=== PATIENT | male | born 1960 | race Caucasian/White ===

== ENCOUNTER 2019-11-27 14:54 | Outpatient (CLI) | payer OTHER, SELFPAY ==
[2019-11-27 15:09] LABS: Basophils Absolute Auto 0.07 K/mm3 (0.00-0.10); Basophils Percent Auto 0.7 % (0.0-1.0); Eosinophils Absolute Auto 0.41 K/mm3 (0.02-0.50); Eosinophils Percent Auto 4.1 % (1.0-6.0); Hematocrit 41.7 % (40.0-54.0); Hemoglobin 13.6 g/dL (14.0-18.0); Immature Granulocyte Absolute 0.03 K/mm3 (0.00-0.00); Immature Granulocyte Percent A 0.3 % (0.0-0.0); Lymphocytes Absolute Auto 2.67 K/mm3 (1.10-4.50); Lymphocytes Percent Auto 26.4 % (18.0-42.0); Mean Corpuscular HGB Conc 32.6 g/dL (32.0-36.0); Mean Corpuscular Hemoglobin 29.4 pg (27.0-31.0); Mean Corpuscular Volume 90.1 fL (78.0-102.0); Mean Platelet Volume 10.3 fl (8.7-11.0); Monocytes Absolute Auto 0.83 K/mm3 (0.10-0.90); Monocytes Percent Auto 8.2 % (2.0-11.0); Neutrophils Absolute Auto 6.1 K/mm3 (1.7-7.2); Neutrophils Percent Auto 60.3 % (50.0-70.0); Platelet Count Result 268 K/mm3 (150-420); Red Blood Count 4.63 M/mm3 (4.70-6.10); Red Cell Distribution Width 13.2 % (11.6-14.4); White Blood Count 10.1 K/mm3 (4.8-10.8)
[2019-11-27 16:15] LABS: Erythrocyte Sedimentation Rate 7 mm/hr (0-20)
[2019-12-01 12:17] LABS: Protein C Antigen 113 % (70-140)
== END 2019-11-27 14:55 | disposition home or self-care (01) ==
PROVIDERS: PCP Family Medicine Adolescent Medicine
DX: H47.011 Ischemic optic neuropathy, right eye (principal)
CPT/HCPCS: 36415; 85025; 85302; 85303; 85652

== ENCOUNTER 2020-05-07 08:26 | Outpatient (CLI) | payer OTHER, MEDICAID, SELFPAY ==
[2020-05-07 08:48] LABS: Hemoglobin A1C 7.7 % (<5.7)
[2020-05-07 09:30] LABS: Alanine Aminotransferase 52 U/L (16-63); Albumin Level 4.1 g/dL (3.4-5.0); Alkaline Phosphatase 73 U/L (46-116); Anion Gap 7 mmol/L (8-16); Aspartate Amino Transferase 23 U/L (15-37); Bilirubin,Total 0.4 mg/dL (0.00-1.00); Blood Urea Nitrogen 21 mg/dL (7-18); Calcium 9.1 mg/dL (8.5-10.1); Carbon Dioxide 28 mmol/L (21-32); Chloride 106 mmol/L (98-108); Cholesterol 168 mg/dL (0-200); Estimated Glomerular Filt Rate > 60; Glucose 111 mg/dL (70-99); HDL Direct 37 mg/dL (40-60); LDL Cholesterol Calculated 115 mg/dL (<130); Osmolality Calculated 296 mOsm/kg (285-295); Potassium 4.7 mmol/L (3.5-5.1); Prostate Specific Antigen 1.6 ng/mL (< OR = 4.0); Sodium 141 mmol/L (136-145); Total Protein 7.2 g/dL (6.4-8.2); Triglycerides 81 mg/dL (0-150)
== END 2020-05-07 08:27 | disposition home or self-care (01) ==
LOC: CHSLAB 08:29
PROVIDERS: PCP Family Medicine Adolescent Medicine; Visit Provider Family Medicine Adolescent Medicine
DX: E11.9 Type 2 diabetes mellitus without complications (principal); I10 Essential (primary) hypertension; E78.00 Pure hypercholesterolemia, unspecified; Z12.5 Encounter for screening for malignant neoplasm of prostate
CPT/HCPCS: 36415; 80053; 80061; 83036; 84153; G0103

== ENCOUNTER 2021-05-24 14:59 | Outpatient (CLI) | payer OTHER, MEDICAID, SELFPAY ==
[2021-05-24 16:38] LABS: SARS-CoV-2 RNA PCR Positive (Negative)
== END 2021-05-24 15:00 | disposition home or self-care (01) ==
LOC: CHSLAB 15:00
PROVIDERS: PCP Family Medicine Adolescent Medicine; Visit Provider Family Medicine Adolescent Medicine
DX: U07.1 COVID-19 (principal)
CPT/HCPCS: C9803; U0003; U0005

== ENCOUNTER 2021-11-22 08:05 | Outpatient (CLI) | payer OTHER, SELFPAY ==
[2021-11-22 08:34] LABS: Hemoglobin A1C 8.1 % (<5.7)
[2021-11-22 08:54] LABS: Alanine Aminotransferase 47 U/L (16-63); Albumin Level 3.7 g/dL (3.4-5.0); Alkaline Phosphatase 76 U/L (46-116); Anion Gap 5 mmol/L (8-16); Aspartate Amino Transferase 20 U/L (15-37); Bilirubin,Total 0.4 mg/dL (0.00-1.00); Blood Urea Nitrogen 9 mg/dL (7-18); Calcium 8.8 mg/dL (8.5-10.1); Carbon Dioxide 29 mmol/L (21-32); Chloride 104 mmol/L (98-108); Cholesterol 209 mg/dL (0-200); Estimated Glomerular Filt Rate > 60; Glucose 123 mg/dL (70-99); HDL Direct 37 mg/dL (40-60); LDL Cholesterol Calculated 143 mg/dL (<130); Osmolality Calculated 285 mOsm/kg (285-295); Potassium 4.6 mmol/L (3.5-5.1); Prostate Specific Antigen 2.4 ng/mL (< OR = 4.0); Sodium 138 mmol/L (136-145); Total Protein 6.9 g/dL (6.4-8.2); Triglycerides 145 mg/dL (0-150)
== END 2021-11-22 08:06 | disposition home or self-care (01) ==
LOC: CHSLAB 08:09
PROVIDERS: PCP Family Medicine Adolescent Medicine; Visit Provider Family Medicine Adolescent Medicine
DX: E78.00 Pure hypercholesterolemia, unspecified (principal); I10 Essential (primary) hypertension; E11.9 Type 2 diabetes mellitus without complications; Z12.5 Encounter for screening for malignant neoplasm of prostate
CPT/HCPCS: 36415; 80053; 80061; 83036; 84153; G0103

== ENCOUNTER 2022-05-22 09:17 | Outpatient (CLI) | payer OTHER, SELFPAY ==
[2022-05-22 09:41] LABS: Hemoglobin A1C 8.4 % (<5.7)
[2022-05-22 10:31] LABS: Cholesterol 167 mg/dL (0-200); HDL Direct 36 mg/dL (40-60); LDL Cholesterol Calculated 106 mg/dL (<130); Triglycerides 126 mg/dL (0-150)
[2022-05-28 10:51] LABS: Testosterone Total 413 ng/dL (250-1100)
== END 2022-05-22 09:18 | disposition home or self-care (01) ==
LOC: CHSLAB 09:18
PROVIDERS: PCP Family Medicine Adolescent Medicine; Visit Provider Family Medicine Adolescent Medicine
DX: R80.9 Proteinuria, unspecified (principal); N52.9 Male erectile dysfunction, unspecified; E78.00 Pure hypercholesterolemia, unspecified; E11.29 Type 2 diabetes mellitus with other diabetic kidney complication
CPT/HCPCS: 36415; 80061; 83036; 84403

== ENCOUNTER 2022-11-17 10:11 | Outpatient (CLI) | payer OTHER, SELFPAY ==
[2022-11-17 10:32] LABS: Creatinine Urine 184.27 mg/dL (40-278); MALB Creatinine Ratio 23.5 mg/g (0-30); Microalbumin Urine Random 43.4 mg/L
[2022-11-17 10:34] LABS: Hemoglobin A1C 8.4 % (<5.7)
[2022-11-17 10:59] LABS: Alanine Aminotransferase 54 U/L (16-63); Albumin Level 3.8 g/dL (3.4-5.0); Alkaline Phosphatase 87 U/L (46-116); Anion Gap 8 mmol/L (8-16); Aspartate Amino Transferase 28 U/L (15-37); Bilirubin,Total 0.4 mg/dL (0.00-1.00); Blood Urea Nitrogen 21 mg/dL (7-18); Calcium 9.3 mg/dL (8.5-10.1); Carbon Dioxide 27 mmol/L (21-32); Chloride 103 mmol/L (98-108); Cholesterol 174 mg/dL (0-200); Estimated Glomerular Filt Rate > 60; Glucose 144 mg/dL (70-99); HDL Direct 33 mg/dL (40-60); LDL Cholesterol Calculated 116 mg/dL (<130); Osmolality Calculated 292 mOsm/kg (285-295); Sodium 138 mmol/L (136-145); Total Protein 6.9 g/dL (6.4-8.2); Triglycerides 123 mg/dL (0-150)
[2022-11-17 11:07] LABS: Thyroid Stimulating Hormone Reflex 1.89 u/IU/mL (0.36-3.74)
== END 2022-11-17 10:12 | disposition home or self-care (01) ==
LOC: CHSLAB 10:12
PROVIDERS: PCP Nurse Practitioner Family; Visit Provider Nurse Practitioner Family
DX: I95.89 Other hypotension (principal); I10 Essential (primary) hypertension; E78.00 Pure hypercholesterolemia, unspecified; E11.9 Type 2 diabetes mellitus without complications
CPT/HCPCS: 36415; 80053; 80061; 82043; 83036; 84443

== ENCOUNTER 2022-11-23 10:28 | Outpatient (CLI) | payer OTHER, SELFPAY ==
--- NOTE | 2022-11-23 10:37 | EST_ITS ---
Patient Info Name: Julian Lowe Age: 61 years : 1960 Gender: Male Ht: 66 in Wt: 213 lbs BSA: 2.16 m2 Exam Date: 11/23/2022 11:02 AM Exam Location: [facility] Patient Status: Outpatient Admit Date: 11/23/2022 Staff Ordering Physician: Rose Shirley APRN Attending Provider: Rose Shirley APRN Exercise Technologist: Betsy Diaz RDCS Exercise Physician: Beka Mota DO Exam Type: CA stress test treadmill Study Info Indications I10 - Essential (primary) hypertension A treadmill exercise stress test was performed. Summary 1. 1. Negative Klever exercise stress test for ischemic ST changes by ECG criteria. 2. 2. Reduced functional capacity, achieving 7 METs of workload. 3. 3. Baseline hypertension with hypertensive response to exercise. 4. 4. Appropriate HR response to exercise. 5. 5. Appropriate HR recovery at 1 minute post exercise. 6. 6. No imaging with stress testing. 7. 7. Patient informed of the above results. Protocol: [facility] Stress ECG Details Stage: REST Duration (min): 2 min : 17 sec Speed (mph): 0.0 Grade (%): 0 HR (bpm): 71 SBP (mmHg): 140 DBP (mmHg): 76 METS: --- Stage: REST Duration (min): 6 min : 36 sec Speed (mph): 0.0 Grade (%): 0 HR (bpm): 70 SBP (mmHg): 140 DBP (mmHg): 76 METS: --- Stage: STAGE 1 Duration (min): 1 min : 0 sec Speed (mph): 1.7 Grade (%): 10 HR (bpm): 96 SBP (mmHg): 140 DBP (mmHg): 76 METS: --- Stage: STAGE 1 Duration (min): 2 min : 0 sec Speed (mph): 1.7 Grade (%): 10 HR (bpm): 107 SBP (mmHg): 140 DBP (mmHg): 76 METS: --- Stage: STAGE 1 Duration (min): 3 min : 0 sec Speed (mph): 1.7 Grade (%): 10 HR (bpm): 114 SBP (mmHg): 204 DBP (mmHg): 71 METS: --- Stage: STAGE 2 Duration (min): 1 min : 0 sec Speed (mph): 2.5 Grade (%): 12 HR (bpm): 125 SBP (mmHg): 204 DBP (mmHg): 71 METS: --- Stage: STAGE 2 Duration (min): 2 min : 0 sec Speed (mph): 2.5 Grade (%): 12 HR (bpm): 135 SBP (mmHg): 215 DBP (mmHg): 77 METS: --- Stage: STAGE 2 Duration (min): 2 min : 59 sec Speed (mph): 3.4 Grade (%): 14 HR (bpm): 142 SBP (mmHg): 215 DBP (mmHg): 77 METS: --- Stage: RECOVERY Duration (min): 1 min : 0 sec Speed (mph): 0.0 Grade (%): 0 HR (bpm): 124 SBP (mmHg): 217 DBP (mmHg): 74 METS: --- Stage: RECOVERY Duration (min): 2 min : 0 sec Speed (mph): 0.0 Grade (%): 0 HR (bpm): 110 SBP (mmHg): 217 DBP (mmHg): 74 METS: --- Stage: RECOVERY Duration (min): 3 min : 0 sec Speed (mph): 0.0 Grade (%): 0 HR (bpm): 99 SBP (mmHg): 221 DBP (mmHg): 71 METS: --- Stage: RECOVERY Duration (min): 4 min : 0 sec Speed (mph): 0.0 Grade (%): 0 HR (bpm): 91 SBP (mmHg): 221 DBP (mmHg): 71 METS: --- Stage: RECOVERY Duration (min): 5 min : 0 sec Speed (mph): 0.0 Grade (%): 0 HR (bpm): 85 SBP (mmHg): 221 DBP (mmHg):
== END 2022-11-23 10:29 | disposition home or self-care (01) ==
PROVIDERS: PCP Nurse Practitioner Family; Visit Provider Nurse Practitioner Family
DX: I95.89 Other hypotension (principal); I10 Essential (primary) hypertension; E78.00 Pure hypercholesterolemia, unspecified
CPT/HCPCS: 93017

== ENCOUNTER 2022-12-28 00:54 | Day surgery (SDC) | payer OTHER, SELFPAY ==
[2022-12-20 12:01] VITALS: BMI 34.4
[2022-12-28 11:47] VITALS: BP 141/72; PULSE 68; RESP 18; TEMP 36.7; O2SAT 97; BMI 34.0
[2022-12-28 11:56] LABS: Glucose Point of Care 103 mg/dl (65-105)
[2022-12-28] MEDS: LACTATED RINGERS 1,000 ML 150 ML IV CONT (12:03)
--- NOTE | 2022-12-28 12:35 | WPDANESEPPF ---
Anes - Initial Pre Proc Eval Procedure: Operation Date: 12/28/22 13:15 Proposed Procedures p Colonoscopy - Jose Shirley MD Date/Time: 12/28/22 12:35 Surgeon: Jose Shirley MD Pre Op Diagnosis: hx colon polyps Patient Data Age: 62 Gender: M Height: 1.68 m Weight: 95.7 kg Last Vital Signs Temp 98.1 F 12/28/22 11:47 Pulse 68 12/28/22 11:47 Resp 18 12/28/22 11:47 BP 141/72 H 12/28/22 11:47 Pulse Ox 97 12/28/22 11:47 O2 Del Method Room Air 12/28/22 11:47 Allergies Allergy/AdvReac Type Severity Reaction Status Date / Time No Known Allergies Allergy Verified 12/28/22 11:46 Home Medications Medication Instructions Recorded Confirmed Type aspirin 81 mg tablet,delayed 81 mg PO DAILY 07/20/21 12/28/22 History release (Adult Low Dose Aspirin) lisinopril 40 mg tablet 40 mg PO DAILY #90 tabs 11/14/21 12/28/22 Rx sildenafil (pulm.hypertension) 20 100 mg PO DAILY PRN sexual 05/22/22 12/28/22 Rx mg tablet activity #30 tabs hydrochlorothiazide 25 mg tablet 25 mg PO DAILY #90 tabs 11/08/22 12/28/22 Rx blood sugar diagnostic (Accu-Chek #100 ea 11/09/22 12/28/22 Rx Nakita Plus test strips) blood-glucose meter (Accu-Chek #1 ea 11/09/22 12/28/22 Rx Nakita Plus Meter) lancets (Accu-Chek Softclix #100 ea 11/09/22 12/28/22 Rx Lancets) metformin 500 mg tablet,extended 2,000 mg PO DAILY #360 tabs 11/12/22 12/28/22 Rx release 24 hr atorvastatin 40 mg tablet 40 mg PO QHS #90 tabs 11/20/22 12/28/22 Rx blood sugar diagnostic (OneTouch #100 ea 11/21/22 12/28/22 Rx Ultra Test strips) blood-glucose meter (OneTouch #1 ea 11/21/22 12/28/22 Rx Ultra2 Meter) lancets 33 gauge (OneTouch Delica #100 ea 11/21/22 12/28/22 Rx Plus Lancet) Laboratory Tests 12/28/22 11:54 POC Capillary Glucose 103 mg/dl (65-105) Patient hx anesthesia problems: none Family hx anesthesia problems: none Results Review: All pre-operative results and documents have been reviewed as part of the pre-operative evaluation. [facility] Past Medical History Medical History Hypertension Primary osteoarthritis of knees, bilateral Pure hypercholesterolemia, unspecified Family History Family History Mother Diabetes mellitus Heart disease Hypertension Sibling Diabetes mellitus Social History Social History Smoking status: Former smoker Tobacco type: cigarettes Second hand tobacco smoke exposure: No Alcohol intake: never Substance use: never Substance use type: does not use Lack of Transportation: No Lack of Food: Never True Current Housing: I Have Housing Concerned About Future Housing: No Difficulty Paying Gas/Electric Bills: No Difficulty Paying for Meds: No Currently Unemployed: No Education: High School Diploma/GED Difficulty w/ Childcare or Family Care: No Living arrangements: with family Occupation/Education: occupation Gender identity (if verbalized by the patient): Male Sexual Orientation (if Verbalized by the Patient): Straight or Heterosexual Spiritual care concerns: No Agree to blood products: Yes Anes - Eval Final PreProcedure Day of Procedure 12/28/22 12:35 Patient weight: obese Heart: regular rate and rhythm Lungs: clear to auscultation Airway: Mallampati scale class II Neurological: alert and oriented Last oral intake: >/= 8 hours ASA classification: III Emergent: no Anesthetic plan: proceed Anesthesia type and monitoring: general GIVS and standard monitoring Results Review: All pre-operative results and documents have been reviewed as part of the pre-operative evaluation. Informed Consent: The patient's anesthetic plan and its attendant risks and benefits were discussed with the patient/family/POA. Questions were edith
--- NOTE | 2022-12-28 12:43 | PM.HPGS ---
History of Present Illness History of Present Illness Consent: Risks, benefits, and alternatives have been discussed and questions answered. Patient agrees to proceed with procedure. Chief complaint: hx colon polyps Narrative: Julian Lowe is a 62 year old male here for screening colonoscopy, last one 11 years ago Review of Systems Constitutional: Constitutional: Denies headache(s) and Denies weakness Eyes: Eyes: Denies blurry vision ENT: Reports Normal hearing present, Denies headache(s) and Denies neck pain Cardiovascular: Cardiovascular: Denies chest pain and Denies dyspnea Respiratory: Respiratory: Denies dyspnea Gastrointestinal: Gastrointestinal: Reports no additional gastrointestinal complaints Genitourinary: Genitourinary: Denies dysuria Musculoskeletal: Musculoskeletal: Denies neck pain Integumentary/Breasts: Skin/Breast: Denies dry skin Neurologic: Reports Normal hearing present, Denies headache(s) and Denies weakness Psychiatric: Psychiatric: Denies anxiety Endocrine: Endocrine: Denies change in body appearance Hematologic/Lymphatic: Hematologic/Lymphatic: Denies easy bleeding Allergic/Immunologic: Allergic/Immunologic: Denies urticaria PMFSH Past Medical History Medical History (Updated 12/28/22 @ 12:45 by Jose Shirley MD) Colon cancer screening Hypertension Primary osteoarthritis of knees, bilateral Pure hypercholesterolemia, unspecified Family History Family History Mother Diabetes mellitus Heart disease Hypertension Sibling Diabetes mellitus Social History Social History Smoking status: Former smoker Tobacco type: cigarettes Second hand tobacco smoke exposure: No Alcohol intake: never Substance use: never Substance use type: does not use Lack of Transportation: No Lack of Food: Never True Current Housing: I Have Housing Concerned About Future Housing: No Difficulty Paying Gas/Electric Bills: No Difficulty Paying for Meds: No Currently Unemployed: No Education: High School Diploma/GED Difficulty w/ Childcare or Family Care: No Living arrangements: with family Occupation/Education: occupation Gender identity (if verbalized by the patient): Male Sexual Orientation (if Verbalized by the Patient): Straight or Heterosexual Spiritual care concerns: No Agree to blood products: Yes Meds Home Medications and Allergies Home Medications Medication Instructions Recorded Confirmed Type aspirin 81 mg tablet,delayed 81 mg PO DAILY 07/20/21 12/28/22 History release (Adult Low Dose Aspirin) lisinopril 40 mg tablet 40 mg PO DAILY #90 tabs 11/14/21 12/28/22 Rx sildenafil (pulm.hypertension) 20 100 mg PO DAILY PRN sexual 05/22/22 12/28/22 Rx mg tablet activity #30 tabs hydrochlorothiazide 25 mg tablet 25 mg PO DAILY #90 tabs 11/08/22 12/28/22 Rx blood sugar diagnostic (Accu-Chek #100 ea 11/09/22 12/28/22 Rx Nakita Plus test strips) blood-glucose meter (Accu-Chek #1 ea 11/09/22 12/28/22 Rx Nakita Plus Meter) lancets (Accu-Chek Softclix #100 ea 11/09/22 12/28/22 Rx Lancets) metformin 500 mg tablet,extended 2,000 mg PO DAILY #360 tabs 11/12/22 12/28/22 Rx release 24 hr atorvastatin 40 mg tablet 40 mg PO QHS #90 tabs 11/20/22 12/28/22 Rx blood sugar diagnostic (OneTouch #100 ea 11/21/22 12/28/22 Rx Ultra Test strips) blood-glucose meter (OneTouch #1 ea 11/21/22 12/28/22 Rx Ultra2 Meter) lancets 33 gauge (OneTouch Delica #100 ea 11/21/22 12/28/22 Rx Plus Lancet) Allergies Allergy/AdvReac Type Severity Reaction Status Date / Time No Known Allergies Allergy Verified 12/28/22 11:46 Vital Signs Vital Signs - 24 hr 12/28/22 11:47 Temperature 98.1 F Pulse Rate 68 Respiratory Rate 18 Blood Pressure 141/72 H Pulse Oximetry 97 Oxygen Delivery Room Air Assessment and
[2022-12-28 13:09] VITALS: BP 99/58; PULSE 57; RESP 22; O2SAT 94
[2022-12-28 13:19] VITALS: BP 106/65; PULSE 58; RESP 20; O2SAT 96
[2022-12-28 13:29] VITALS: BP 121/72; PULSE 56; RESP 18; O2SAT 97
== END 2022-12-28 13:39 | disposition home or self-care (01) ==
PROVIDERS: PCP Nurse Practitioner Family; Visit Provider Internal Medicine Gastroenterology
PROC: 0DJD8ZZ Inspection of Lower Intestinal Tract, Via Natural or Artificial Opening Endoscopic (ICD-10-PCS; CPT 45378; principal; 2022-12-28 13:15)
DX: Z12.11 Encounter for screening for malignant neoplasm of colon (principal); K63.5 Polyp of colon; I10 Essential (primary) hypertension; E78.00 Pure hypercholesterolemia, unspecified; Z79.82 Long term (current) use of aspirin; Z79.84 Long term (current) use of oral hypoglycemic drugs; Z87.891 Personal history of nicotine dependence; E66.9 Obesity, unspecified; Z68.34 Body mass index [BMI] 34.0-34.9, adult
CPT/HCPCS: 45385; 82948; 88305; J2001; J2704; J7120

== ENCOUNTER 2023-04-07 12:51 | Emergency (ER) | payer OTHER, SELFPAY ==
[2023-04-07 12:51] VITALS: BP 157/92; PULSE 75; RESP 20; TEMP 36.6; O2SAT 97
--- NOTE | 2023-04-07 12:53 | ED.DENTAL ---
HPI - Dental/Oral General Chief complaint: Dental/Oral Stated complaint: dental pain Source: patient Mode of arrival: ambulatory Limitations: no limitations History of Present Illness HPI Narrative: Patient is a 62-year-old male with right lower dental pain for the past few days. He got amoxicillin from his primary doctor few days ago which is not helping. Further he has a dental appointment tomorrow to deal with this problem. MD Complaint: tooth pain Location: Tooth # (31,32) Onset (ago): day(s) (3) Duration: constant Severity: moderate Severity scale (1-10): 5 Relieving factors: nothing Exacerbating factors: chewing, cold, heat and drinking fluids Context: history of dental caries Treatment prior to arrival: other ( Currently on amoxicillin) Related Data Home Medications Medication Instructions Recorded Confirmed aspirin 81 mg tablet,delayed 81 mg PO DAILY 07/20/21 12/28/22 release (Adult Low Dose Aspirin) Allergies Allergy/AdvReac Type Severity Reaction Status Date / Time No Known Allergies Allergy Verified 12/28/22 11:46 Review of Systems Review of Systems: All systems reviewed & are unremarkable except as noted in HPI and below Constitutional: Constitutional: Reports no additional constitutional complaints Eyes: Eyes: Reports no additional eye complaints ENT: Reports system reviewed and no additional complaints, except as documented Cardiovascular: Cardiovascular: Reports no additional cardiovascular complaints Respiratory: Respiratory: Reports no additional respiratory complaints Gastrointestinal: Gastrointestinal: Reports no additional gastrointestinal complaints Genitourinary: Genitourinary: Reports no additional male genitourinary complaints Musculoskeletal: Musculoskeletal: Reports no additional musculoskeletal complaints Integumentary/Breasts: Skin/Breast: Reports system reviewed and no additional complaints, except as docu Neurologic: Reports system reviewed and no additional complaints, except as documented Psychiatric: Psychiatric: Reports no additional psychiatric complaints Endocrine: Endocrine: Reports no additional endocrine complaints Hematologic/Lymphatic: Hematologic/Lymphatic: Reports no additional hematologic/lymphatic complaints Allergic/Immunologic: Allergic/Immunologic: Reports no additional allergic/immunologic complaints PMFSH Past Medical History Medical History Colon cancer screening Hypertension Primary osteoarthritis of knees, bilateral Pure hypercholesterolemia, unspecified Family History Family History Mother Diabetes mellitus Heart disease Hypertension Sibling Diabetes mellitus Social History Social History Smoking status: Former smoker Tobacco type: cigarettes Second hand tobacco smoke exposure: No Alcohol intake: never Substance use: never Substance use type: does not use Lack of Transportation: No Lack of Food: Never True Current Housing: I Have Housing Concerned About Future Housing: No Difficulty Paying Gas/Electric Bills: No Difficulty Paying for Meds: No Currently Unemployed: No Education: High School Diploma/GED Difficulty w/ Childcare or Family Care: No Living arrangements: with family Occupation/Education: occupation Gender identity (if verbalized by the patient): Male Sexual Orientation (if Verbalized by the Patient): Straight or Heterosexual Spiritual care concerns: No Agree to blood products: Yes Exam Const: General: healthy appearing Nutritional Appearance: well nourished Orientation/consciousness: patient oriented x3 HENMT: Head: normal to inspection Ears: external ears normal Face/Nose/Sinus: Normal external nose present Other: gums are normal, right lower tooth number 32 has decay significantly Eyes:
[2023-04-07] MEDS: KETOROLAC (*BKC) 60 MG/2 ML VIAL IM (13:12)
== END 2023-04-07 13:20 | disposition home or self-care (01) ==
LOC: CHSED 13:22
PROVIDERS: Emergency Provider Emergency Medicine; PCP Family Medicine Adolescent Medicine
DX: R68.84 Jaw pain (principal); I10 Essential (primary) hypertension; Z87.891 Personal history of nicotine dependence
CPT/HCPCS: 96372; 99283; J1885

== ENCOUNTER 2023-05-03 08:01 | Outpatient (CLI) | payer OTHER, SELFPAY ==
[2023-05-03 08:24] LABS: Hemoglobin A1C 8.5 % (<5.7)
[2023-05-03 08:31] LABS: Creatinine Urine 202.66 mg/dL (40-278); MALB Creatinine Ratio 28.3 mg/g (0-30); Microalbumin Urine Random 57.5 mg/L
[2023-05-03 08:47] LABS: Alanine Aminotransferase 48 U/L (16-63); Albumin Level 3.8 g/dL (3.4-5.0); Alkaline Phosphatase 99 U/L (46-116); Anion Gap 7 mmol/L (8-16); Aspartate Amino Transferase 17 U/L (15-37); Bilirubin,Total 0.4 mg/dL (0.00-1.00); Blood Urea Nitrogen 16 mg/dL (7-18); Calcium 8.9 mg/dL (8.5-10.1); Carbon Dioxide 29 mmol/L (21-32); Chloride 107 mmol/L (98-108); Cholesterol 155 mg/dL (0-200); Estimated Glomerular Filt Rate > 60; Glucose 167 mg/dL (70-99); HDL Direct 36 mg/dL (40-60); LDL Cholesterol Calculated 102 mg/dL (<130); Osmolality Calculated 301 mOsm/kg (285-295); Potassium 4.7 mmol/L (3.5-5.1); Sodium 143 mmol/L (136-145); Total Protein 6.8 g/dL (6.4-8.2); Triglycerides 83 mg/dL (0-150)
== END 2023-05-03 08:02 | disposition home or self-care (01) ==
LOC: CHSLAB 08:03
PROVIDERS: PCP Family Medicine Adolescent Medicine; Visit Provider Nurse Practitioner Family
DX: I10 Essential (primary) hypertension (principal); E11.9 Type 2 diabetes mellitus without complications; E78.00 Pure hypercholesterolemia, unspecified
CPT/HCPCS: 36415; 80053; 80061; 82043; 83036

== ENCOUNTER 2023-10-24 12:10 | Outpatient (CLI) | payer OTHER, SELFPAY ==
[2023-10-24 13:00] LABS: Hemoglobin A1C 7.9 % (<5.7)
[2023-10-24 13:31] LABS: Prostate Specific Antigen 2.2 ng/mL (< OR = 4.0)
== END 2023-10-24 12:11 | disposition home or self-care (01) ==
LOC: ANHLAB 12:12
PROVIDERS: PCP Family Medicine Adolescent Medicine; Visit Provider Family Medicine Adolescent Medicine
DX: E11.65 Type 2 diabetes mellitus with hyperglycemia (principal); Z12.5 Encounter for screening for malignant neoplasm of prostate
CPT/HCPCS: 36415; 83036; 84153; G0103

== ENCOUNTER 2024-05-11 08:10 | Outpatient (CLI) | payer OTHER, SELFPAY ==
[2024-05-11 08:39] LABS: Hemoglobin A1C 8.6 % (<5.7)
[2024-05-11 09:26] LABS: Alanine Aminotransferase 49 U/L (16-63); Albumin Level 3.7 g/dL (3.4-5.0); Alkaline Phosphatase 82 U/L (46-116); Anion Gap 6 mmol/L (4-12); Aspartate Amino Transferase 28 U/L (15-37); Bilirubin,Total 0.6 mg/dL (0.00-1.00); Blood Urea Nitrogen 22 mg/dL (7-18); Calcium 8.9 mg/dL (8.5-10.1); Carbon Dioxide 28 mmol/L (21-32); Chloride 104 mmol/L (98-108); Cholesterol 195 mg/dL (0-200); Estimated Glomerular Filt Rate > 60; Glucose 146 mg/dL (70-99); HDL Direct 37 mg/dL (40-60); LDL Cholesterol Calculated 124 mg/dL (<130); Osmolality Calculated 292 mOsm/kg (285-295); Potassium 4.4 mmol/L (3.5-5.1); Sodium 138 mmol/L (136-145); Total Protein 6.5 g/dL (6.4-8.2); Triglycerides 168 mg/dL (0-150)
== END 2024-05-11 08:11 | disposition home or self-care (01) ==
PROVIDERS: PCP Family Medicine Adolescent Medicine; Visit Provider Family Medicine Adolescent Medicine
DX: E78.00 Pure hypercholesterolemia, unspecified (principal); I10 Essential (primary) hypertension; R80.9 Proteinuria, unspecified; E11.29 Type 2 diabetes mellitus with other diabetic kidney complication
CPT/HCPCS: 36415; 80053; 80061; 83036

== ENCOUNTER → 2024-08-26 15:02 | Outpatient (CLI) | payer MEDICARE, MEDICAID, SELFPAY ==
--- NOTE | ~2024-08-26 | XR_ITS ---
EXAMINATION: XR chest 2V 08/26/2024 15:45 INDICATION: Cough PROCEDURE: 2 view chest COMPARISON: No prior studies for comparison. FINDINGS: The lungs are clear. The cardiomediastinal silhouette is within normal limits. There are no pleural effusions. There is no pneumothorax suspected. IMPRESSION: 1: NO ACUTE CARDIOPULMONARY DISEASE. Reviewed, dictated and finalized at location A.
== END ==
LOC: EXPCRAD 15:08
PROVIDERS: PCP Family Medicine Adolescent Medicine; Visit Provider Family Medicine
DX: R05.9 Cough, unspecified (principal)
CPT/HCPCS: 71046

== ENCOUNTER 2025-02-10 10:26 | Outpatient (CLI) | payer MEDICARE, MEDICAID, SELFPAY ==
--- OUTSIDE RECORDS SUMMARY | 2012-12-10 03:10 | XMS_ITS | Continuity of Care Document ---
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, [place], [place], [id number], tel:[phone] [address] [place] [address] [facility] No Information 3 Rae Chen. [address], [address], [place], [place], [id number] , [place]. tel:[phone] Referring Provider: Gustavo Mcbride MD P, [address], [place], [address] . tel:[phone] OFFICE/OUTPA TIENT VISIT, [facility], [address], [place], [place], [address], tel:[phone] [facility] No Information 3 Rae Chen. [address], [address], [place], [place], [id number] , [place]. tel:[phone] Referring Provider: Gustavo Mcbride MD P, [address], [place], [address] . tel:[phone] Family History Family Member Type Diagnosis Age At Onset No Information Payers Payer name Insurance type Covered democrat ID Authorirma johnson(s) [facility] [id number] Social History Type Description Quantity Date Captured Comments Sex Male Smoking Status No Information Chief Complaint And Reason For Visit No Information Reason For Referral Reason For Referral No Information History Of Present Illness Encounter Date Complaint History Of Prese nt Illness No Information Functional Status Date Functional Assessmen t No Information Instructions Date Instruction Additional Infor mation No Information Assessments Type Assessment Date No Information Patient Care Teams Name Effective Dates (start - stop) Status Members No Information
[2025-02-10 10:42] LABS: Hematocrit 38.0 % (40.0-54.0); Hemoglobin 11.9 g/dL (14.0-18.0); Mean Corpuscular HGB Conc 31.3 g/dL (32-36); Mean Corpuscular Hemoglobin 28.3 pg (27.0-31.0); Mean Corpuscular Volume 90.3 fL (78.0-102.0); Platelet Count Result 262 K/mm3 (150-420); Red Blood Count 4.21 M/mm3 (4.70-6.10); White Blood Count 8.4 K/mm3 (4.8-10.8)
[2025-02-10 11:00] LABS: Hemoglobin A1C 8.5 % (<5.7)
[2025-02-10 11:07] LABS: MALB Creatinine Ratio 25.6 mg/g (0-30)
--- OUTSIDE RECORDS SUMMARY | 2025-02-10 11:17 | XMS_ITS | Clinical Summary ---
Author Organization [facility] [employer] Address [address] [place] [address] Care Team Providers Care Director Search Marketing Strategies Name Role Phone Jaime Shore MD Primary Care Provider + Source Comments [facility] [employer],non-owned Affiliates and Associated Physician Practices is amultiple site organization consisting of ambulatory clinics and hospital sitesin [place], [place], [place] and [place]. This disclosure is being madepursuant to the Care Everywhere program and may not contain all information available regarding this patient. Last updated 18.[facility] [employer] Allergies No known active allergies Medications * Be aware that medications may not be up to date on this document. Alwaysverify current medications with the patient. hydroCHLOROthi azide (Hydrodiuril) 25 MG tablet Take 1 (one) tablet by mouth once daily Active aspirin (Aspirin) 81 MG chew tablet Take 1 (one) tablet by mouth once daily 5 Active escitalopram (Lexapro) 10 MG tablet Take 1 (one) tablet by mouth once daily 5 Active atorvastatin (Lipitor) 40 MG tablet Take 1 (one) tablet by mouth at bedtime 5 Active valsartan (Diovan) 320 MG tablet Take 1 (one) tablet by mouth once daily 5 Active meclizine (Antivert) 25 MG tablet Take 1 (one) tablet by mouth 2 times daily as needed for Dizziness 5 Active Additional Information Patient taking differently: 50 mgOral 2 TIMES DAILY PRN, Dizziness, Reported on 11/18/2024 Eliquis 5 MG tablet Take 1 (one) tablet by mouth 2 times daily 5 Active metFORMIN ER 24hr (Glucophage XR) 500MG tablet Take 4 (four) tablets by mouth daily with dinner 3 Active pioglitazone (Actos) 30 MG tablet Take 1 (one) tablet by mouth once daily Active amoxicillin-cl avulanate (Augmentin) 875-125 MG tablet Take 1 (one) tablet by mouth 5 Active oxyCODONE, immediate release, (Roxicodone) 5 MG tabletIndicati ons:Mastoiditi s of right side Take 1 (one) tablet by mouth every 4 hours as needed 30 tablet 5 Active acetaminophen (Tylenol) 325 MG tablet Take 2 (two) tablets by mouth every 6 hours as needed Maximum allowable Acetaminophen amount = 4 Grams (4000 mg) / 24 hours. 5 Active polyethylene glycol 3350 (Miralax) 17 g packet Take 17 (seventeen) g by mouth once daily as needed for Constipation 5 Active Blood Glucose Monitoring Suppl (Blood Glucose Monitor System) w/Device KITIndications :Streptococcus pneumoniae meningitis (HCC) Use 1 Each as directed 1 Each 09/30/2024 1:47 PM CDT 5 Active blood glucose test stripIndicatio ns:Diabetes Mellitus USE 1 TEST STRIP ONCE DAILY 100 strip 1 5 Active lancetsIndicat ions:Diabetes Mellitus Reasons: Diabetes 100 Each 1 5 Active clindamycin (Cleocin) 300 MG capsule Take 1 (one) capsule by mouth 3 times daily 42 capsule 5 Active acyclovir (Zovirax) 400 MG tablet Take 1 (one) tablet by mouth 3 times daily 5 Active DULoxetine (Cymbalta) 60 MG capsule Take 1 (one) capsule by mouth once daily 5 Active Active Problems Problem Noted Date Diagnosed Date Non-recurrent acute suppurat serjio otitis media of right ear with spontaneous rupture of tympanic membrane 09/16/2024 Mastoiditis of right side 06/24/2024 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 Acute suppurative otitis med ia of right ear with spontaneous rupture of tympanic membrane 06/18/2024 Septic shock with acute orga n dysfunction due to Streptococcus pneumoniae 06/18/2024 Influenza A 06/18/2024 Trauma 06/17/2024 Altered mental status, unspe cified altered mental status type 06/17/2024 Severe sepsis 06/17/2024 Hypertension 06/17/2024 Hyperlipidemia 06/17/2024 Diabetes mellitus 06/17/2024 Anxiety 06/17/2024 Leukocytosis 06/17/2024 Acute encephalopathy 06/17/2024 Acute respiratory failure 06/17/2024 Transaminitis 06/17/2024 Lactic acidosis 06/17/2024 Shock circulatory 06/17/2024 Resolved Problems Problem Noted Date Diagnosed Date Resolved Date Meningitis 06/17/2024 06/18/2024 Encounters Date Type Department Care Team Description 11/18/2024 11:15 AM CDT Office Visit 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); History of meningitis; Bilateral chronic serous otitis media; ETD (Eustachian tube dysfunction), bilateral 11/18/2024 Travel from Last 3 Months Immunizations Immunization Administration Dates Next Due Covid GigOwl primary monoval ent 12+ yr 0.3mL Purple cap 01/13/2021,12/20/2020 PNEUMOCOCCAL PCV20 CONJ VAC IM 07/14/2024 Family History Medical History Relation Name Comments CAD (Coronary Artery Disease) Mother Hypertension Mother Renal Disease Mother Diabetes - Type 2 Other Relation Name Status Comments Mother Other Social History Tobacco Use Types Packs/Day Years Used Date Smoking Tobacco: Former Cigarettes Smokeless Tobacco: Never Alcohol Use Standard Drinks/Week Comments Never 0 (1 standard drink = 0.6 oz pur e alcohol) AUDIT-C Answer Date Recorded Q1: How often do you have a drink containing alcohol? Never 09/16/2024 Q2: How many drinks containi ng alcohol do you have on a typical day when you are drinking? Patient unable to answer Q3: How often do you have si x or more drinks on one occasion? Patient unable to answer 09/16/2024 Overall Financial Resource Strain (CARDIA) Answe r Date Recorded How hard is it for you to pa y for the very basics like food, housing, medical care, and heating? Not hard at all 06/18/2024 [facility] Occupat ional Health - Occupational Stress Questionnaire Answer Date Recorded Do you feel stress - tense, restless, nervous, or anxious, or unable to sleep at night because your mind is troubled all the time - these days? Not at all 06/18/2024 Hunger Vital Sign Answer Date Recorded Within the past 12 months, y ou worried that your food would run out before you got the money to buy more. Never true 06/18/19 25 Within the past 12 months, t he food you bought just didn't last and you didn't have money to get more. Never true 06/18/2024 PRAPARE - Transportation Answer Date Re corded In the past 12 months, has l ack of transportation kept you from medical appointments or from getting medications? No 06/03 In the past 12 months, has l ack of transportation kept you from meetings, work, or from getting things needed for daily living? No 06/18/2024 Housing Stability Vital Sign Answer Cruz e Recorded In the last 12 months, was t here a time when you were not able to pay the mortgage or rent on time? No 06/18/2024 In the past 12 months, how m any times have you moved where you were living? 0 06/18/2024 At any time in the past 12 m [facility], were you homeless or living in a custodial (including now)? No 06/18/2024 Sex and Gender Information Value Date Recorded Sex Assigned at Not on file Legal Sex Male 7:07 AM CDT Gender Identity Not on file Sexual Orientation Not on file Last Filed Vital Signs Vital Sign Reading Time Taken Comments Blood Pressure 125/66 11/18/2024 10:29 AM CDT Pulse 75 11/18/2024 10:24 AM CDT Temperature 36.9 C (98.5 F) 09/18/2024 8:00 AM CDT Respiratory Rate 16 09/18/2024 8:00 AM CDT Oxygen Saturation 94% 09/18/2024 8:0 0 AM CDT Inhaled Oxygen Concentration 45% 8:44 AM [facility] decreased FiO2 Weight 103.4 kg (228 lb) 11/18/2024 10: 24 AM CDT Height 167.6 cm (5' 6) 11/18/2024 10:2 4 AM CDT Body Mass Index 36.8 11/18/2024 10:24 AM CDT Plan of Treatment Upcoming Encounters Date Type Department Care Team (Late st Contact Info) Description 03/17/2025 1:15 PM CDT Office Visit [facility] - ENT [address] [place] [address], [place] [address] Carmelo Coley MD [address] [place] [address] [place] [address] Health Maintenance Due Date Last Done Comments COLOGUARD (AGES 45-75) - COLON CA SCREENING 1961 COLON MONITORING 1961 COLONOSCOPY - COLON CA SCREENING 1961 CT COLONOGRAPHY - COLON CA SCREENING 1961 Colorectal Cancer Screening 1961 FIT - COLON CA SCREENING 1961 FLEX SIG - COLON CA SCREENING 1961 MEDICARE AWV 12 MONTHS 1961 HIV SCREENING 1976 DTAP/TDAP/TD VACCINES (1 - Tdap) 1980 ZOSTER VACCINE (1 of 2) 12/17/2011 DEPRESSION SCREENING 06/03/2024 DIABETES - URINE PROTEIN SCREENING 06/03/2024 DIABETES RETINOPATHY SCREENING 06/17/2024 DIABETES-FOOT EXAM WITH MONOFILAMENT 06/17/2024 DIABETES-HGB A1C 09/16/2024 06/18/2024 COVID-19 VACCINE (3 - 2024- season) 2025 01/13/2021, 12/20/2020 INFLUENZA VACCINE (#1) 2025 DIABETES-SERUM CREATININE 09/17/20252024, 08/31/2024, 06/24/2024, Additional history exists Respiratory Syncytial Virus (RSV) Vaccine Pt: or over 60 yrs (1 - 1-dose 75+ series) 2036 HEPATITIS C SCREENING Completed 06/22/2024 PNEUMOCOCCAL VACCINE 50+ Completed 07/14/2024 HEPATITIS B VACCINE Aged Out No longe r eligible based on patient's age to complete this topic HIB VACCINE Aged Out No longer eligi ble based on patient's age to complete this topic HPV VACCINE Aged Out No longer eligi ble based on patient's age to complete this topic MENINGOCOCCAL (Group B) VACCINE SHARED DECISION-MAKING Aged Out No longer eligible based on patient's age to complete this topic MENINGOCOCCAL GROUPS A/C/Y/W VACCINE Aged Out No longer eligible based on patient's age to complete this topic Medical Devices Implanted Type Area Apn Device Identifier Shelf Expiration Date Model / Serial / Lot Seal Dural Auto Spr Ext Tip 5ml Implanted:Qt y: 1 on 09/16/2024 by Dom Merida MD at [facility] Other (Type not listed) Right: Cranial [employer] [employer] [id number] 03/02/2026 [id number] / / [id number] Patch Dura 8x12cm Bvn Pricrd Strl Lf - [id number] Implanted:Qt y: 1 on 09/16/2024 by Dom Merida MD at [facility] Other (Type not listed) Right: Cranial [employer] 04/02/2028 [id number] / [id number] / Procedures Procedure Name Priority Date/Time Associated Diagnosis Comments COMPREHENSIVE METABOLIC PANEL Routine 09/17/2024 11:53 PM CDT HEPATITIS C AB SCREEN RFLX NAAT QUANT Routine 06/22/2024 5:52 AM [facility] HEMOGLOBIN A1C Routine 06/18/2024 3:23 AM [facility] from Last 3 Months or Most Recently Relevant to Health Maintenance Results * (ABNORMAL) COMPREHENSIVE METABOLIC PANEL (09/17/2024 11:53 PM CDT) BUN 17 7 - 26 mg/dL 09/18/2024 12:41 AM CDT [facility] Creatinine 1.03 0.71 - 1.16 mg/dL 09/18/2024 12:41 AM CDT [facility] Sodium 137 136 - 145 mmol/L 09/18/2024 12:41 AM CDT [facility] Potassium 4.2 3.5 - 4.5 mmol/L 09/18/2024 12:41 AM [facility] Chloride 105 98 - 107 mmol/L 09/18/2024 12:41 AM [facility] CO2 26 22 - 29 mmol/L 09/18/2024 12:41 AM [facility] Glucose 203(H) 70 - 99 mg/dL 09/18/2024 12:41 AM [facility] Calcium 8.5 8.4 - 10.2 mg/dL 09/18/2024 12:41 AM [facility] Protein Total 6.3 6.0 - 8.3 g/dL 09/18/2024 12:41 AM [facility] Albumin 3.4 3.4 - 5.0 g/dL 09/18/2024 12:41 AM [facility] Bilirubin Total 0.4 0.2 - 1.2 mg/dL 09/18/2024 12:41 AM [facility] Alkaline Phosphatase 63 40 - 150 U/L 09/18/2024 12:41 AM [facility] ALT 19 5 - 55 U/L 09/18/2024 12:41 AM [facility] AST 19 5 - 34 U/L 09/18/2024 12:41 AM [facility] Anion Gap 6 6 - 16 09/18/2024 12:41 AM [facility] BUN/Creatinine Ratio 17 7 - 23 09/18/2024 12:41 AM [facility] Osmolality Calculated 291 275 - 295 mOsm/kg 09/18/2024 12:41 AM [facility] Albumin/Globulin Ratio 1.2 1.1 - 2.3 09/18/2024 12:41 AM [facility] eGFR by CKD-EPI 82(L) >=90 mL/min/1.7 3 m2 09/18/2024 12:41 AM [facility] Blood BLOOD SPECIMEN / Unknown Venipuncture / Unknown 09/17/2024 11:53 PM CDT 09/18/2024 12:07 AM T us Dom Merida MD LAB - CHEMISTRY ORDERABLES F inal Result Performing Organization Address City/[facility] Co de Phone Number [address] [address], [facility] [phone] * HEPATITIS C AB SCREEN RFLX NAAT QUANT (06/22/2024 5:52 AM [facility]) Pathologist [facility] Hepatitis C Antibody Non-react serjio Non-reac tive 06/22/2024 7:[address] [facility] Comment:Hepatitis C Antibody screen indicates no serologic evidence of past or current infection with Hepatitis C Virus. Patients with unexplained liver disease who are immunocompromised or suspected of having acute Hepatitis C infection may benefit from Nucleic Acid Test (CLARE) for Hepatitis C Viral RNA to confirm Hepatitis C status. Blood BLOOD SPECIMEN / Unknown Lab Venipuncture / Unknown 06/22/2024 5:52 AM [facility] 06/22/2024 7:01 AM [facility] Ehsan Gayle MD LAB - CHEMISTRY ORDERABLES Final Result Performing Organization Address [facility] Co de Phone Number [address] [address], [facility] [phone] * (ABNORMAL) HEMOGLOBIN A1C (06/18/2024 3:23 AM [facility]) [facility] Hemoglobin A1c 9.0(H) <=5.6 % 06/18/2024 9:[address] [facility] Estimated Average Glucose 212 mg/dL 06/18/2024 9:[address] [facility] Comment: HbA1c Interpretation: Normal : < 5.7% Pre-diabetes: 5.7-6.4% Diabetes: Equal to or greater than 6.5% Test results diagnostic of diabetes should be repeated for confirmation. Treatment target values recommended by ADA and other clinical organizations should be used to evaluate metabolic control in patients. Reference: [place] [employer] Association, Standards of Care in Diabetes -2020 In patients 70 years and older consider HbA1c target range of 7.0-7.5% (Reference: Eliel Hilario et al. JAMDA. 2012) The Sebia assay for the measurement of HbA1c is a National Glycohemoglobin Standardization Program (NGSP) certified method. Blood BLOOD SPECIMEN / Unknown Venipuncture / Unknown 06/18/2024 3:23 AM [facility] 06/18/2024 3:44 AM [facility] Jean Echeverria MD LAB - CHEMISTRY ORDERABLES Final Result [facility] [address] [place] [address], [facility] [phone] from Last 3 Months or Most Recently Relevant to Health Maintenance Insurance MEDICAID - [place] MEDICARE Advance Directives * Full Code (Latest Code Status on File) Date Activated Date Inactivated Comments 09/16/2024 1:25 PM 09/18/2024 11:21 AM * Full Code Date Activated Date Inactivated Comments 06/17/2024 7:15 PM 06/24/2024 7:55 PM Care Teams Director Search Marketing Strategies Relationship Specialty Start Date End Date Jaime Shore MD [address] [address] PCP - General Family Medicine 06/17/24
--- OUTSIDE RECORDS SUMMARY | 2025-02-10 11:17 | XMS_ITS | Clinical Summary ---
Author Organization [facility] Address [address] [place] [address] Phone Care Team Providers Care Information Services Tech Name Role Phone Jaime Shore MD Primary Care Provider + Jaime Nguyen DO Unavailable [phone] Carmen Puri ACOUSTICAL INSTALLER, MONOTYPE OPERATOR Unavailable [phone] Debra Warner ACOUSTICAL INSTALLER, MONOTYPE OPERATOR Unavailable Allergies No known active allergies Medications polyethylene glycol (MIRALAX) Powder Mix the entire bottle with 64 oz of a clear liquid. Use as directed by the office for colonoscopy prep. 255 g 0 6 Active metFORMIN (GLUCOPHAGE) 500 MG Tablet Take 500 mg by mouth daily. Active atorvastatin (LIPITOR) 20 MG Tablet Take 20 mg by mouth daily. Active ibuprofen (MOTRIN) 200 MG Tablet Take 200 mg by mouth Daily as needed. 2 TABS Active Family History Medical History Relation Name Comments Kidney Cancer Brother 1 Diabetes Brother 2 Diabetes Mother Hypertension Mother Diabetes Sister Relation Name Status Comments Brother 1 Brother 2 Father Alive Mother Sister Social History Tobacco Use Types Packs/Day Years Used Date Smoking Tobacco: Former Cigarettes 1 23 0 11/22/1981 - 11/22/2004 Alcohol Use Standard Drinks/Week Comments No 0 (1 standard drink = 0.6 oz pur e alcohol) weekends. Quit in 1992. Sex and Gender Information Value Date Recorded Sex Assigned at Not on file Legal Sex Male 9:18 AM CDT Gender Identity Not on file Sexual Orientation Not on file Occupation Industry Job Start Date Job End Date works for [employer] Not on file Not on file Not on f ile Last Filed Vital Signs Vital Sign Reading Time Taken Comments Blood Pressure 110/50 11/25/2015 1:26 PM CDT Pulse - - Temperature 36 C (96.8 F) 11/25/2015 1:26 PM CDT Respiratory Rate 14 11/25/2015 1:26 PM CDT Oxygen Saturation 94% 11/25/2015 1:26 PM CDT Inhaled Oxygen Concentration - - Weight 95.3 kg (210 lb) 11/23/2015 9:00 AM CDT Height 172.7 cm (5' 8) 11/23/2015 9:00 AM CDT Body Mass Index 31.93 11/23/2015 9:00 AM CDT Plan of Treatment Health Maintenance Due Date Last Done Comments Hepatitis C Virus (HCV) Screening 1961 TdaP Immunization 1961 Cologuard 2006 Immunochemical Fecal Occult Blood 2006 Pneumococcal Immunization (5 0+ years) (1 of 1 - PCV) 12/17/2011 Zoster Immunization (1 of 2) 12/17/2011 SARS-COV-2 Immunization (1 - 2023- season) 2024 Influenza Immunization (#1) 2025 Colonoscopy 11/24/2025 11/25/2015 Colorectal Cancer Screening 11/24/2025 Respiratory Syncytial Virus (RSV) Immunization (Adult) (1 - 1-dose 75+ series) 2036 Hepatitis B Immunization Aged Out No longer eligible based on patient's age to complete this topic Human Papillomavirus (HPV) Immunization Aged Out No longer eligible b ased on patient's age to complete this topic Meningococcal Immunization (ACWY) Aged Out No longer eligible based on patient's age to complete this topic Rotavirus Immunization Aged Out No lo nger eligible based on patient's age to complete this topic Insurance [facility] Care Teams Information Services Tech Relationship Specialty Start Date End Date Jaime Shore MD PCP - General Family Medicine 11/24/15 Jaime Nguyen DO Gastroenterology 12/08/15 Carmen Puri APRN, MONOTYPE OPERATOR Nurse Practitioner Advanced Practice Nurse 12/08/15 Debra Warner, DEVYN, MONOTYPE OPERATOR Nurse Practitioner Advanced Practice Nurse 12/08/15
[2025-02-10 11:24] LABS: Alanine Aminotransferase 33 U/L (6-50); Albumin Level 4.5 g/dL (3.5-5.1); Alkaline Phosphatase 74 U/L (38-126); Anion Gap 10 mmol/L (4-12); Aspartate Amino Transferase 30 U/L (17-59); Bilirubin,Total 0.7 mg/dL (0.2-1.3); Blood Urea Nitrogen 22 mg/dL (9-20); Calcium 9.6 mg/dL (8.4-10.2); Carbon Dioxide 25 mmol/L (22-30); Chloride 106 mmol/L (98-107); Cholesterol 161 mg/dL (0-200); Estimated Glomerular Filt Rate > 60; Glucose 128 mg/dL (65-110); HDL Direct 41 mg/dL; Osmolality Calculated 297 mOsm/kg (285-295); Potassium 4.9 mmol/L (3.4-5.0); Sodium 141 mmol/L (137-145); Total Protein 6.9 g/dL (6.3-8.2); Triglycerides 179 mg/dL (<150)
[2025-02-10 11:54] LABS: Prostate Specific Antigen 2.0 ng/mL (< OR = 4.0); Thyroid Stimulating Hormone 2.820 uIU/mL (0.465-4.680)
[2025-02-17 23:07] LABS: Free Testosterone (Direct) 4.6 pg/mL (6.6-18.1)
== END 2025-02-10 10:27 | disposition home or self-care (01) ==
LOC: CHSLAB 10:27
PROVIDERS: PCP Family Medicine Adolescent Medicine; Visit Provider Family Medicine Adolescent Medicine
DX: I10 Essential (primary) hypertension (principal); E78.00 Pure hypercholesterolemia, unspecified; E11.29 Type 2 diabetes mellitus with other diabetic kidney complication; R80.9 Proteinuria, unspecified; E11.65 Type 2 diabetes mellitus with hyperglycemia; R53.81 Other malaise; R53.83 Other fatigue; Z12.5 Encounter for screening for malignant neoplasm of prostate
CPT/HCPCS: 36415; 80053; 80061; 82043; 83036; 84153; 84402; 84403; 84443; 85027; G0103